=== PATIENT | female | born 2000 | race Caucasian/White ===

== ENCOUNTER 2023-09-30 01:39 | Emergency (ER) | payer OTHER ==
[~2023-09-30] VITALS: Ht 165.1 cm; Wt 73.0 kg
[2023-09-30 01:50] VITALS: O2SAT 98
[2023-09-30 03:07] LABS: EOSINOPHILS % 5.8 % (0.0-5.0); HEMATOCRIT. 37.6 % (36.0-48.0); HEMOGLOBIN. 12.7 g/dL (12.0-16.0); LYMPHOCYTES % 33.6 % (20.0-50.0); MEAN CORPUSCULAR HEMOGLOBIN 27.5 pg (28.0-32.0); MEAN CORPUSCULAR HGB CONC 33.8 g/dL (31.0-37.0); MEAN CORPUSCULAR VOLUME 81.2 fL (81.0-99.0); MEAN PLATELET VOLUME 7.8 fl (7.4-10.4); MONOCYTES % 6.5 % (2.0-8.0); NEUTROPHILS % 53.1 % (40.0-76.0); PLATELET 330 x1000/uL (130-400); RED BLOOD CELL COUNT 4.64 mill/uL (4.2-5.4); RED CELL DISTRIBUTION WIDTH 13.9 % (11.6-14.6); WHITE BLOOD COUNT 8.3 x1000/uL (4.5-11.0)
[2023-09-30 03:14] LABS: CLARITY URINE CLOUDY (CLEAR); COLOR URINE DARK YELLOW (YELLOW); GLUCOSE URINE NEGATIVE (NEGATIVE); KETONES URINE TRACE (NEGATIVE); LEUKOCYTE ESTERASE URINE NEGATIVE (NEGATIVE); NITRITE URINE NEGATIVE (NEGATIVE); OCCULT BLOOD URINE NEGATIVE (NEGATIVE); PROTEIN URINE 1+ (NEGATIVE); SPECIFIC GRAVITY URINE 1.026 (1.005-1.030)
[2023-09-30 03:19] LABS: ACETAMINOPHEN < 2 ug/mL (10-30); ALANINE AMINOTRANSFERASE 23 IU/L (10-49); ALBUMIN 4.6 g/dL (3.2-4.8); ASPARTATE AMINOTRANSFERASE 28 IU/L (<34); BILIRUBIN TOTAL 0.9 mg/dL (0.1-1.0); CALCIUM 8.9 mg/dL (8.7-10.4); CARBON DIOXIDE 25 mEq/L (21-32); CHLORIDE 105 mEq/L (98-107); CREATININE 0.8 mg/dL (0.6-1.0); GLUCOSE 81 mg/dL (70-105); POTASSIUM 3.5 mEq/L (3.5-5.1); SODIUM 139 mEq/L (136-145); UREA NITROGEN BLOOD 11 mg/dL (9-23)
[2023-09-30 03:30] LABS: *AMPHETAMINES SCREEN URINE NEGATIVE (NEGATIVE); *BARBITURATES SCREEN URINE NEGATIVE (NEGATIVE); *BENZODIAZEPINES SCREEN URINE NEGATIVE (NEGATIVE); *COCAINE SCREEN URINE NEGATIVE (NEGATIVE); CANNABINOID URINE SCREEN NEGATIVE (NEGATIVE); ECSTASY MDMA SCREEN URINE NEGATIVE (NEGATIVE); METHADONE URINE SCREEN Neg (NEGATIVE); OPIATES URINE SCREEN NEGATIVE (NEGATIVE); PHENCYCLIDINE URINE SCREEN NEGATIVE (NEGATIVE)
[2023-09-30 03:34] LABS: HCG SCREEN NEGATIVE
[2023-09-30 03:37] LABS: ETHANOL BLOOD < 10 mg/dL (<10)
[2023-09-30] MEDS: HALOPERIDOL LACTATE 5MG/ML VIAL IM ONE (03:40)
[2023-09-30] MEDS: LORAZEPAM 2MG/ML INJ IM ONE (03:40)
[2023-09-30] MEDS: DIPHENHYDRAMINE 50MG/ML VIAL IM ONE (03:40)
[2023-09-30 05:29] LABS: SQUAMOUS EPITHELIAL CELL URINE 3+ /lpf (RARE/1+)
[2023-09-30 05:34] LABS: BACTERIA URINE 2+; RBC URINE 0-2 /hpf (0-2)
[2023-09-30 06:30] VITALS: BP 127/94; PULSE 88; RESP 16; TEMP 98.4
== END 2023-09-30 11:47 ==
LOC: ER 01:39
DX: F29 Unspecified psychosis not due to a substance or known physiological condition (principal); F41.9 Anxiety disorder, unspecified; Z20.822 Contact with and (suspected) exposure to COVID-19
CPT/HCPCS: 80053; 80305; 81003; 81025; 80307; 80329; 80320; 84703; 85025; 36415; 96372; 99284; 87426; J1200; J1630; J2060; Z7610 ×2; G0480

== ENCOUNTER 2024-06-02 15:51 | Emergency (ER) | payer OTHER ==
[~2024-06-02] VITALS: Ht 152.4 cm; Wt 97.0 kg
[2024-06-02 15:54] VITALS: O2SAT 97
[2024-06-02] MEDS: SODIUM CHLORIDE 0.9% 1,000 ML IV ONE (17:24)
[2024-06-02] MEDS: LORAZEPAM 2MG/ML INJ IV ONE (17:51)
[2024-06-02 20:16] LABS: BASOPHILS % 0.6 % (0.0-2.0); EOSINOPHILS % 9.4 % (0.0-5.0); HEMOGLOBIN. 14.4 g/dL (12.0-16.0); LYMPHOCYTES % 20.6 % (20.0-50.0); MEAN CORPUSCULAR HEMOGLOBIN 27.7 pg (28.0-32.0); MEAN CORPUSCULAR HGB CONC 33.4 g/dL (31.0-37.0); MEAN CORPUSCULAR VOLUME 83.1 fL (81.0-99.0); MEAN PLATELET VOLUME 8.1 fl (7.4-10.4); MONOCYTES % 3.2 % (2.0-8.0); NEUTROPHILS % 66.2 % (40.0-76.0); PLATELET 295 x1000/uL (130-400); RED BLOOD CELL COUNT 5.17 mill/uL (4.2-5.4); RED CELL DISTRIBUTION WIDTH 13.7 % (11.6-14.6); WHITE BLOOD COUNT 10.8 x1000/uL (4.5-11.0)
[2024-06-02 20:25] LABS: CHLORIDE 105 mEq/L (98-107); POTASSIUM 3.2 mEq/L (3.5-5.1); SODIUM 139 mEq/L (136-145)
[2024-06-02 20:26] LABS: CARBON DIOXIDE 18 mEq/L (21-32)
[2024-06-02 20:27] LABS: CALCIUM 9.5 mg/dL (8.7-10.4)
[2024-06-02 20:31] LABS: CREATININE 0.9 mg/dL (0.6-1.0)
[2024-06-02 20:32] LABS: GLUCOSE 79 mg/dL (70-105)
[2024-06-02 20:33] LABS: ACETAMINOPHEN < 2 ug/mL (10-30)
[2024-06-02 20:36] LABS: ETHANOL BLOOD < 10 mg/dL (<10); UREA NITROGEN BLOOD < 5 mg/dL (9-23)
[2024-06-02 20:44] LABS: HCG SCREEN NEGATIVE
[2024-06-02] MEDS: POTASSIUM CHLORIDE 20MEQ/PACKET PO NR (21:36)
[2024-06-02 22:23] LABS: CLARITY URINE CLEAR (CLEAR); COLOR URINE DARK YELLOW (YELLOW); GLUCOSE URINE NEGATIVE (NEGATIVE); KETONES URINE 4+ (NEGATIVE); LEUKOCYTE ESTERASE URINE NEGATIVE (NEGATIVE); NITRITE URINE NEGATIVE (NEGATIVE); OCCULT BLOOD URINE NEGATIVE (NEGATIVE); PH URINE 6.5 (4.5-8.0); PROTEIN URINE 1+ (NEGATIVE); SPECIFIC GRAVITY URINE 1.023 (1.005-1.030)
[2024-06-02 22:39] LABS: *AMPHETAMINES SCREEN URINE NEGATIVE (NEGATIVE); *BARBITURATES SCREEN URINE NEGATIVE (NEGATIVE); *BENZODIAZEPINES SCREEN URINE NEGATIVE (NEGATIVE); *COCAINE SCREEN URINE NEGATIVE (NEGATIVE); BACTERIA URINE TRACE; METHADONE URINE SCREEN NEGATIVE (NEGATIVE); OPIATES URINE SCREEN NEGATIVE (NEGATIVE); RBC URINE 0-2 /hpf (0-2); SQUAMOUS EPITHELIAL CELL URINE 1+ /lpf (RARE/1+); WBC URINE 0-2 /hpf (0-2)
[2024-06-02 22:40] LABS: CANNABINOID URINE SCREEN NEGATIVE (NEGATIVE); ECSTASY MDMA SCREEN URINE NEGATIVE (NEGATIVE); PHENCYCLIDINE URINE SCREEN NEGATIVE (NEGATIVE)
[2024-06-03] MEDS: POTASSIUM CHLORIDE 20MEQ TABLET SR PO ONE (01:56)
[2024-06-03 22:13] LABS: POTASSIUM 3.2 mEq/L (3.5-5.1)
[2024-06-04] MEDS ORDERED: POTASSIUM CHLORIDE 20MEQ/PACKET PO NR (02:45)
[2024-06-04] MEDS: POTASSIUM CHLORIDE 20MEQ TABLET SR PO NR (03:05)
[2024-06-04] MEDS: POTASSIUM CHLORIDE 20MEQ/PACKET PO ONE (09:40)
[2024-06-04 12:16] LABS: CHLORIDE 106 mEq/L (98-107); POTASSIUM 3.8 mEq/L (3.5-5.1); SODIUM 142 mEq/L (136-145)
[2024-06-04 12:17] LABS: CARBON DIOXIDE 24 mEq/L (21-32)
[2024-06-04 12:18] LABS: CALCIUM 9.6 mg/dL (8.7-10.4)
[2024-06-04 12:22] LABS: CREATININE 0.9 mg/dL (0.6-1.0); GLUCOSE 98 mg/dL (70-105)
[2024-06-04 12:25] LABS: UREA NITROGEN BLOOD < 5 mg/dL (9-23)
[2024-06-04 14:06] VITALS: BP 119/69; PULSE 87; RESP 18; TEMP 36.94740; O2SAT 97
== END 2024-06-04 15:22 ==
LOC: ER 15:51
DX: F32.A Depression, unspecified (principal); F20.9 Schizophrenia, unspecified; R63.0 Anorexia; R41.82 Altered mental status, unspecified; Z88.8 Allergy status to other drugs, medicaments and biological substances; Z91.041 Radiographic dye allergy status; Z20.822 Contact with and (suspected) exposure to COVID-19
CPT/HCPCS: 80305; 80048 ×2; 81003; 81025; 80307; 80329; 80320; 84703; 84132; 85025; 36415 ×2; 70450; 96374; 99285; 87426; J2060; J7030; Z7610 ×5; G0480